=== PATIENT | female | born 1950 | race Caucasian/White ===

== ENCOUNTER → 2021-04-09 | Outpatient (CLI) | payer OTHER ==
[~2021-04-09] MED LIST: ALLERGY25 MG PO; CIPROFLOXACIN500 M1 PO; FLAGYL500 MG PO; NORCO 5-325 TA1 EACH PO; PROBIOTIC1 EAC7 PO; VITAMIN C500 M2 PO; VITAMIN D350 MC3 PO
== END ==
LOC: LAB 15:31
PROVIDERS: ATTEND Student in an Organized Health Care Education/Training Program
DX: Z01.812 Encounter for preprocedural laboratory examination (principal); Z20.822 Contact with and (suspected) exposure to COVID-19

== ENCOUNTER → 2021-04-11 | Outpatient (CLI) | payer OTHER ==
[~2021-04-11] VITALS: Ht 157.5 cm; Wt 81.7 kg
--- NOTE | 2021-04-18 10:29 | PATH ---
[facility] [address] [place] [address] PATHOLOGY RPT PROCEDURE Name: CORNELIA DURBIN Room #: REG [facility] Kwaku.Damaso.#: [id number] Admission: 04/11/21 Date of : 46 Discharge: Report #: [id number] Path Case #: [id number] [facility] Accession Number: [id number] . 01 Material submitted: . sigmoid colon - SIGMOID COLON POLYP . 01 Clinical history: . DTS/COLONOSCOPY/HX OF POLYPS, FAM HX OF COLON POLYP DIVERTICULOSIS, INTERNAL HEMORRHOIDS, COLON POLYP FLEX SIGMOIDOSCOPY . 02 Diagnosis: Colonic mucosa, sigmoid colon polyp, biopsy: - Polypoid fragment of benign colonic mucosa with edematous submucosa. - Negative for dysplasia or malignancy. ([facility]:pit; 04/16/2021) QTP 04/16/2021 0916 Local . 02 Electronically signed: . Anastacio Dumont DO, Pathologist NPI- [id number] . 01 Gross description: . The specimen is received in formalin, labeled "Cornelia Durbin, sigmoid colon polyp". Received is a single segment of pale quintanilla tissue measuring 0.5 cm in maximum dimensions. The specimen is submitted entirely in cassette A1. ([facility]; 04/12/2021) NRI/NRI 04/12/2021 1600 Local . 02 Pathologist provided ICD-10: Z86.010 . 02 CPT . 836205 Specimen Comment: Report sent to Performed at: 01 [facility] [address] [place] [id number] MD Hussain Azevedo MD Phone: [phone] Performed at: [address] [id number] MD Baron Vang MD Phone: [phone]
--- NOTE | 2021-04-18 16:18 | P ---
[facility] [place] [address] [place] [address] PROCEDURE REPORT Name: ANTOINE DURBIN Room #: REG [facility] AlanisFelipe#: [id number] Admission: 04/11/21 Attend Phys: Sanket Pruitt Discharge: Date of : 46 Report #: [id number] THIS REPORT FOR: cc: FAM - No family physician/PCP FAM - No family physician/PCP Sanket Garcia MD ~ DATE OF SERVICE: 04/11/2021 PROCEDURE PERFORMED: Flexible sigmoidoscopy. HISTORY OF PRESENT ILLNESS: The patient is a 70-year-old female who presents for routine followup screening colonoscopy. Last colonoscopy in 2012. Hyperplastic polyps were removed at that time. She has a family history of colon cancer in her father. She denies any symptoms. Plan is for colonoscopy. DESCRIPTION OF PROCEDURE: The risks and benefits of the procedure were explained to the patient, those risks including but not limited to bleeding, perforation, and the risk of sedation. She understood these risks and gave informed consent. Sedation was given using propofol per anesthesia. Next, a digital rectal exam was initially performed, which was normal. Next, using a standard Olympus colonoscope, the scope was placed in the patient's anus and advanced under direct vision into the sigmoid colon, at which point it was very tortuous and narrowed. Despite multiple attempts, I was unable to pass a standard colonoscope through this area. At this point, the scope was then withdrawn, and Olympus upper endoscope was then used. This was placed in the patient's anus. I was able to advance the scope with some difficulty through the sigmoid colon, it was very tortuous and somewhat narrowed. Multiple diverticula were noted in this area. No active inflammation. No masses were seen. I was able to advance the scope into what appears to be the proximal transverse, possible distal ascending colon, but I was unable to advance the scope any further due to the limitation of the length of the scope. At this point, the scope was then slowly withdrawn. The transverse colon was normal. Multiple diverticula were noted in the descending and sigmoid colon. Again, no evidence of inflammation. In the sigmoid colon also, there was a 3 mm sessile polyp. This was removed with cold forceps. The rectal mucosa was normal. On retroflexion, small nonbleeding internal hemorrhoids were noted. The scope was then withdrawn and the procedure terminated. The patient tolerated the procedure well. IMPRESSION: 1. Unable to perform full colonoscopy due to narrowing and tortuous sigmoid colon and diverticulosis. Therefore, a flexible sigmoidoscopy was performed today as described above. 2. Multiple diverticula noted in the descending and sigmoid colon. 3. Small sigmoid colon polyp. 4. Internal hemorrhoids. [address] [address] PROCEDURE REPORT Name: ANTOINE DURBIN Room #: REG [facility] Webb#: [id number] Admission: 04/11/21 Attend Phys: Sanket Pruitt Discharge: Date of : 46 Report #: [id number] RECOMMENDATIONS: 1. Await biopsy results. 2. Recommend a barium enema in the near future and then repeat colonoscopy in 3 years depending on barium enema results. Thank you for allowing me to participate in her care. The patient has no family physician at this time. <ELECTRONICALLY SIGNED> By: Sanket Garcia MD 04/18/21 1618 [id number] Sanket Garcia MD /nt
== END | disposition home or self-care (01) ==
LOC: GI 07:21
PROVIDERS: ATTEND Specialist
DX: Z12.11 Encounter for screening for malignant neoplasm of colon (principal); Z86.010 Personal history of colon polyps; Z80.0 Family history of malignant neoplasm of digestive organs; K63.5 Polyp of colon; K57.30 Diverticulosis of large intestine without perforation or abscess without bleeding; K64.8 Other hemorrhoids; Z98.890 Other specified postprocedural states; Z79.899 Other long term (current) drug therapy; Z90.710 Acquired absence of both cervix and uterus; Z85.828 Personal history of other malignant neoplasm of skin; Z87.891 Personal history of nicotine dependence; Z88.8 Allergy status to other drugs, medicaments and biological substances
CPT/HCPCS: 62110; 62900

== ENCOUNTER → 2021-04-26 | Outpatient (CLI) | payer OTHER | LOC: RAD 07:26 | PROVIDERS: ATTEND Specialist | DX: K57.30 Diverticulosis of large intestine without perforation or abscess without bleeding (principal); Z53.9 Procedure and treatment not carried out, unspecified reason ==